=== PATIENT | male | born 1990 | race African-American/Black ===

== ENCOUNTER 2017-11-21 05:30 | Emergency (ER) | payer OTHER ==
[~2017-11-21] VITALS: Ht 185.4 cm; Wt 113.4 kg
[~2017-11-21 05:30] MED LIST: IBUPROFEN800 M1 PO; KEFLEX500 M1 PO; MEDROL DOSEPAK1 PAC PO; MOTRIN800 MG PO
[2017-11-21 05:40] VITALS: BP 117/77
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
--- NOTE | 2017-11-21 06:56 | RADIOLOGY REPORT ---
EXAMINATION: RIGHT FOOT 3 VIEWS CLINICAL INFORMATION: Pain following injury. COMPARISON: None. TECHNIQUE: AP, lateral, oblique views of the right foot were obtained. FINDINGS: There are no fractures or dislocations. There is no significant soft tissue swelling. No ankle joint effusion is identified. IMPRESSION: Unremarkable right foot radiographs.
== END 2017-11-21 07:22 | disposition left against medical advice (07) ==
LOC: ERH 05:30
DX: S90.31XA Contusion of right foot, initial encounter (principal); V09.00XA Pedestrian injured in nontraffic accident involving unspecified motor vehicles, initial encounter
CPT/HCPCS: 73630-RT